=== PATIENT | female | born 1975 | race American Indian/Alaskan Native ===

== ENCOUNTER 2017-04-27 23:00 | Emergency (ER) | payer OTHER ==
--- NOTE | 2017-04-28 04:44 | XRay Report ---
FINAL REPORT EXAM: XR SPINE CERVICAL 2-3V HISTORY: NECK/BACK PAIN COMPARISONS: None FINDINGS: Three views of the cervical spine Mild straightening of the cervical spine. Vertebral body heights and intervertebral disc spaces are preserved. No fractures. Prevertebral soft tissues are within normal limits. Incomplete evaluation of the lung apices is unremarkable. IMPRESSION: Mild straightening of the cervical spine, which may be secondary to positioning or muscular spasm. Otherwise unremarkable cervical spine radiographs.
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
[2017-04-28 05:18] VITALS: BP 122/67
== END 2017-04-28 05:18 | disposition home or self-care (01) ==
LOC: ED 23:00
DX: M54.5 Low back pain (principal); M62.838 Other muscle spasm; V89.2XXA Person injured in unspecified motor-vehicle accident, traffic, initial encounter; Y92.488 Other paved roadways as the place of occurrence of the external cause; Y93.89 Activity, other specified; Y99.9 Unspecified external cause status
CPT/HCPCS: 72040; 99283

== ENCOUNTER 2019-02-08 21:07 | Emergency (ER) | payer OTHER ==
[2019-02-08 21:23] VITALS: BP 126/75
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
[2019-02-08] MEDS ORDERED: NORCO 5/325 PO ONE (21:36)
[2019-02-08 21:56] LABS: HCG Qualitative,Urine Negative (Negative)
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
== END 2019-02-08 23:57 | disposition home or self-care (01) ==
LOC: ED 21:07
DX: S16.1XXA Strain of muscle, fascia and tendon at neck level, initial encounter (principal); S39.012A Strain of muscle, fascia and tendon of lower back, initial encounter; M51.36 Other intervertebral disc degeneration, lumbar region; Z79.899 Other long term (current) drug therapy; V89.2XXA Person injured in unspecified motor-vehicle accident, traffic, initial encounter; Y93.89 Activity, other specified; Y92.89 Other specified places as the place of occurrence of the external cause; Y99.8 Other external cause status
CPT/HCPCS: 70450; 72125; 72128; 72131; 81025